=== PATIENT | male | born 1970 | race Caucasian/White ===

== ENCOUNTER 2021-11-06 08:59 | Inpatient (IN) | payer OTHER ==
[~2021-11-06] VITALS: Ht 198.1 cm; Wt 102.1 kg
== END 2021-11-14 10:36 | disposition home or self-care (01) | DRG 194 ==
LOC: ER 08:59 → MEDI 23:13
PROVIDERS: ADMIT Internal Medicine; ATTEND Internal Medicine
PROC: 3E0F7GC Introduction of Other Therapeutic Substance into Respiratory Tract, Via Natural or Artificial Opening (ICD-10-PCS; principal; 2021-11-06)
PROC: 3E0F7SF Introduction of Other Gas into Respiratory Tract, Via Natural or Artificial Opening (ICD-10-PCS; 2021-11-06)
PROC: 4A033R1 Measurement of Arterial Saturation, Peripheral, Percutaneous Approach (ICD-10-PCS; 2021-11-06)
PROC: BW2110Z Computerized Tomography (CT Scan) of Abdomen and Pelvis using Low Osmolar Contrast, Unenhanced and Enhanced (ICD-10-PCS; 2021-11-06)
PROC: BW25ZZZ Computerized Tomography (CT Scan) of Chest, Abdomen and Pelvis (ICD-10-PCS; 2021-11-06)
DX: J18.8 Other pneumonia, unspecified organism (principal); E87.1 Hypo-osmolality and hyponatremia; N12 Tubulo-interstitial nephritis, not specified as acute or chronic; R65.10 Systemic inflammatory response syndrome (SIRS) of non-infectious origin without acute organ dysfunction; K92.2 Gastrointestinal hemorrhage, unspecified; E86.0 Dehydration; Z20.822 Contact with and (suspected) exposure to COVID-19